=== PATIENT | female | born 1950 | race African-American/Black ===

== ENCOUNTER 2017-01-05 12:36 | Emergency (ER) | payer MEDICARE, OTHER ==
[2017-01-05 12:46] VITALS: TEMP 98; BMI 31.8
[2017-01-05] MEDS ORDERED: hydrALAZINE HCL 20 MG/ML VIAL IVPUSH ONE (14:25)
[2017-01-05] MEDS ORDERED: hydrALAZINE HCL 20 MG/ML VIAL ONE (14:34)
[2017-01-05] MEDS ORDERED: morphine CARPU-JECT 4 MG/1 ML DISP.SYRIN IVPUSH ONE (14:48)
[2017-01-05] MEDS ORDERED: ONDANSETRON 4 MG/2 ML VIAL IVPUSH ONE (14:48)
--- NOTE | 2017-01-05 14:59 | PDOC ---
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 States the pain began 3d ago, has been a sharp stabbing pain constant for 3d, rated 7/10. States her "eye doctor" in the last week stated she had no glaucoma or cataract. Her PCP is working her up for an increased creatinine kinase (pt states for RA vs myositis). She denies CAREY, vision changes (blurry vision, double vision, floaters, scotoma or dark spots in visual lucas) , photophobia or N/V. Tobacco: 1.5-2ppd x40yrs. quit 2007. No alcohol or illicit drug use. Timing/Duration: other (3d) Severity: moderate Associated Symptoms: denies: chest pain, cough, diaphoresis, fever/chills, headaches, loss of appetite, nausea/vomiting, shortness of breath, syncope, weakness <Mark Frey - Last Filed: 01/05/17 16:58> <Luz Jain - Last Filed: 01/05/17 17:26> - General Chief Complaint: Eye Problem Stated Complaint: EYE PROBLEM Time Seen by Provider: 01/05/17 13:07 Past History - Travel Traveled outside of the country in the last 30 days: No Close contact w/someone who was outside of country & ill: No - Past Medical History Diabetes: Yes (borderline) HTN: Yes (normal range around 140/80) Hypercholesterolemia: Yes Liver Disease: Yes (fatty liver, liver cysts) - Immunization History Immunization Up to Date: Yes - Psycho/Social/Smoking Cessation Hx Suicidal Ideation: No Smoking History: Former smoker Have you smoked in the past 12 months: No If you are a former smoker, when did you quit?: 2007 Information on smoking cessation initiated: No Hx Alcohol Use: No Drug/Substance Use Hx: No Substance Use Type: None Hx Substance Use Treatment: No <Mark Frey - Last Filed: 01/05/17 16:58> <JainJaninaLuz A - Last Filed: 01/05/17 17:26> - Past Medical History Allergies/Adverse Reactions: Allergies Allergy/AdvReac Type Severity Reaction Status Date / Time No Known Drug Allergies Allergy Verified 01/05/17 12:43 Home Medications: Ambulatory Orders Levofloxacin [Levaquin] 750 mg PO DAILY #14 tab 01/05/17 Nadolol 80 mg PO BID 01/05/17 Review of Systems - Review of Systems Able to Perform ROS?: Yes Is the patient limited Hungarian proficient: No Constitutional: No: Chills, Diaphoresis, Fever, Weakness HEENTM: Yes: Eye Pain (sharp stabbing in right eye, constant 3d rated 7/10). No : Blurred Vision, Tearing, Recent change in vision, Double Vision, Cataracts, Ear Pain, Ear Discharge, Nose Pain, Tinnitus, Throat Pain Respiratory: No: Cough, Shortness of Breath, Wheezing, Productive cough Cardiac (ROS): No: Chest Pain, Irregular Heart Rate, Lightheadedness, Palpitations, Syncope ABD/GI: No: Abdominal Distended, Constipated, Diarrhea : No: Burning, Dysuria, Discharge, Frequency Neurological: No: Headache, Numbness, Paresthesia Endocrine: No: Excessive Sweating, Increased Hunger, Increased Thirst, Increased Urine All Other Systems: Reviewed and Negative <Mark Frey - Last Filed: 01/05/17 16:58> *Physical Exam - Vital Signs Last Vital Signs Temp Pulse Resp BP Pulse Ox 98.0 F 65 18 197/74 99 01/05/17 12:43 01/05/17 12:43 01/05/17 12:43 01/05/17 12:43 01/05/17 12:43 - Physical Exam General Appearance: Yes: Appropriately Dressed HEENT: positive: EOMI (pain in right eye on right eye abduction), RICARDO, Normal Voice, Hearing Grossly Normal. negative: Pale Conjunctivae, Photophobia, Scleral Icterus (R), Scleral Icterus (L), Muffled/Hoarse voice Neck: negative: Tender, Lymphadenopathy (R), Lymphadenopathy (L) Respiratory/Chest: positive: Lungs Clear, Normal Breath Sounds. negative: Chest Tender, Respiratory Distress, Accessory Muscle Use, Decreased Breath Sounds, Crackles, Rales, Rhonchi, Stridor, Wheezing, Dullness Cardiovascular: positive: Regular Rhythm, Regular Rate, S1, S2. negative: JVD, Murmur, Bradycardia, Tachycardia, Systolic Murmur, Gallop/S3, Gallop/S4, Irregularly Irregular, Irregular Gastrointestinal/Abdominal: positive: Normal Bowel Sounds, Flat, Soft. negative : Tender, Organomegaly, Pulsatile Mass, Distended, Guarding, Rebound, Tenderness Musculoskeletal: positive: Normal Inspection. negative: CVA Tenderness Extremity: positive: Normal Capillary Refill, Normal Range of Motion Neurologic: positive: processing engineer II-XII NML intact, Fully Oriented, Alert, Normal Mood/ Affect, Motor Strength 5/5. negative: EOM Palsy, Facial Droop, Numbness, Sensory Deficit, Confused, Disoriented, Depressed Affect, Babinski <Mark Frey - Last Filed: 01/05/17 16:58> - Vital Signs Last Vital Signs Temp Pulse Resp BP Pulse Ox 98.0 F 66 20 140/60 97 01/05/17 12:43 01/05/17 17:20 01/05/17 17:20 01/05/17 17:20 01/05/17 17:20 <Luz Jain A - Last Filed: 01/05/17 17:26> Heart Score/ECG Review - Age Age: >/= 65 - Risk Factors Risk Factors Heart Score: Yes Hx Hypertension <Mark Frey - Last Filed: 01/05/17 16:58> ED Treatment Course - LABORATORY CBC & Chemistry Diagram: 01/05/17 14:32 01/05/17 14:32 - RADIOLOGY Radiology Studies Ordered: Category Date Time Status HEAD CT WITHOUT CONTRAST [CT] Stat CT Scan 01/05/17 14:23 Ordered CHEST X-RAY PORTABLE* [RAD] Stat Radiology 01/05/17 14:25 Ordered <Mark Frey - Last Filed: 01/05/17 16:58> - LABORATORY CBC & Chemistry Diagram: 01/05/17 14:32 01/05/17 14:32 - ADDITIONAL ORDERS Additional order review: Laboratory Results 01/05/17 01/05/17 01/05/17 14:37 14:32 14:32 INR 1.05 Sodium Potassium Chloride Carbon Dioxide Anion Gap BUN Creatinine Creat Clearance w eGFR Random Glucose Calcium Total Bilirubin AST ALT Alkaline Phosphatase Creatine Kinase 2400 H Troponin I < 0.02 Total Protein Albumin Urine Color Colorless Urine Appearance Clear Urine pH 7.0 Urine Protein Negative Urine Glucose (UA) Negative Urine Ketones Negative Urine Blood Negative Urine Nitrite Negative Urine Bilirubin Negative Urine Urobilinogen Negative Ur Leukocyte Esterase Negative 01/05/17 14:32 INR Sodium 141 Potassium 4.7 Chloride 106 Carbon Dioxide 32 Anion Gap 3 L BUN 14 Creatinine 0.8 Creat Clearance w eGFR > 60 Random Glucose 85 Calcium 9.1 Total Bilirubin 0.5 AST 55 H ALT 62 Alkaline Phosphatase 66 Creatine Kinase Troponin I Total Protein 8.0 Albumin 3.6 Urine Color Urine Appearance Urine pH Urine Protein Urine Glucose (UA) Urine Ketones Urine Blood Urine Nitrite Urine Bilirubin Urine Urobilinogen Ur Leukocyte Esterase 01/05/17 14:32 RBC 4.26 MCV 89.3 MCHC 33.7 RDW 13.7 MPV 8.8 Neutrophils % 46.1 Lymphocytes % 40.4 H Monocytes % 9.7 Eosinophils % 2.5 Basophils % 1.3 - RADIOLOGY Radiograph Interpretation: 01/05/17 17:24 Chest X-Ray Reported by Dr. Hebert Henry Impression: Cardiomegaly, no acute disease Head CT Reported by Dr. Hebert Henry Impression: Right maxillary sinusitis. No evidence of acute intracranial pathology. - Medications Given in the ED: ED Medications Discontinued Medications Generic Name Dose Route Start Last Admin Trade Name Greg PRN Reason Stop Dose Admin Acetaminophen 1,000 mg 01/05/17 15:11 01/05/17 15:21 Ofirmev Injection - IVPB 01/05/17 15:12 1,000 mg ONCE ONE Administration Hydralazine HCl 10 mg 01/05/17 14:25 01/05/17 15:03 Apresoline Injection - IVPUSH 01/05/17 14:26 10 mg ONCE ONE Administration Levofloxacin 750 mg 01/05/17 16:53 01/05/17 17:04 Levaquin - PO 01/05/17 16:54 750 mg ONCE ONE Administration Morphine Sulfate 4 mg 01/05/17 14:48 01/05/17 15:21 Morphine Injection - IVPUSH 01/05/17 14:49 Not Given ONCE ONE Ondansetron HCl 4 mg 01/05/17 14:48 01/05/17 15:22 Zofran Injection IVPUSH 01/05/17 14:49 Not Given ONCE ONE <Jain,Luz A - Last Filed: 01/05/17 17:26> Medical Decision Making - Medical Decision Making 01/05/17 15:05 this 66yo F w/ PMHx of 2 brain aneurysm in right posterior communicating artery and L paraclinoid clinoid artery unchanged since 2007, HTN, decreased bone density and tonsillectomy presents due to right eye pain HTN urgency -hydralazine IV -CBC w/ diff, CMP, EKG, troponins, pt/inr, -head ct due to high bp and hx aneurysm r/o UTI -U/A r/o temporal arteritis -consult patient to f/u pcp for temporal artery biopsy <Mark Frey - Last Filed: 01/05/17 16:58> *DC/Admit/Observation/Transfer - Discharge Dispostion Admit: No <Mark Frey - Last Filed: 01/05/17 16:58> <Luz Jain A - Last Filed: 01/05/17 17:26> Diagnosis at time of Disposition: Hypertension, uncontrolled Sinusitis Qualifiers: Sinusitis location: maxillary Chronicity: acute Recurrence: non-recurrent Qualified Code(s): J01.00 - Acute maxillary sinusitis, unspecified - Discharge Dispostion Disposition: HOME - Prescriptions Prescriptions: Levofloxacin [Levaquin] 750 mg PO DAILY #14 tab - Referrals Referrals: Eliana Grayson [Primary Care Provider] - - Patient Instructions Printed Discharge Instructions: DI for Sinusitis, High Blood Pressure Additional Instructions: Follow up with Dr. Grayson, Stick to your New Lifestyle, Healthy Foods and Exercise, NO SALT, NO BOLOGNA...... Best- Dr. Mark Frost is for 2 weeks
[2017-01-05 15:06] LABS: BASOPHIL 1.3 % (0-2.0); EOSINOPHIL 2.5 % (0-4.5); MCH 30.1 pg (25.7-33.7); MCHC 33.7 g/dl (32.0-36.0); MEAN CELL VOLUME 89.3 fl (80-96); MEAN PLT VOLUME 8.8 fl (7.5-11.1); NEUTROPHILS 46.1 % (42.8-82.8); PLATELET COUNT 225 K/MM3 (134-434); RDW 13.7 % (11.6-15.6); WHITE BLOOD COUNT 9.6 K/mm3 (4.0-10.0)
[2017-01-05] MEDS ORDERED: ACETAMINOPHEN INJECTION 100 ML IVPB ONE (15:06)
[2017-01-05] MEDS ORDERED: ACETAMINOPHEN 1000 MG/100 ML VIAL (NON FORMULARY) IVPB ONE (15:11)
[2017-01-05 15:17] LABS: INR 1.05 (0.82-1.09); PROTHROMBIN TIME (PATIENT) 11.6 SEC (9.98-11.88)
[2017-01-05 15:32] LABS: ALBUMIN 3.6 g/dl (3.4-5.0); ANION GAP 3 (8-16); BILIRUBIN,TOTAL 0.5 mg/dL (0.2-1.0); CALCIUM 9.1 mg/dL (8.5-10.1); CO2 32 mmol/L (21-32); CREATININE 0.8 mg/dL (0.55-1.02); GLUCOSE,RANDOM 85 mg/dL (74-106); SGOT/AST 55 U/L (15-37); SGPT/ALT 62 U/L (12-78)
[2017-01-05 15:33] LABS: ALK PHOS 66 U/L (45-117)
[2017-01-05 15:45] LABS: TROPONIN I < 0.02 ng/ml (0.00-0.05)
[2017-01-05 15:51] LABS: CPK 2400 IU/L (26-192)
[2017-01-05 16:18] LABS: URINE APPEARANCE CLEAR; URINE BILIRUBIN NEGATIVE (NEGATIVE); URINE BLOOD NEGATIVE (NEGATIVE); URINE COLOR COLORLESS; URINE GLUCOSE (UA) NEGATIVE (NEGATIVE); URINE KETONE NEGATIVE (NEGATIVE); URINE LEUK ESTERASE NEGATIVE (NEGATIVE); URINE NITRITE NEGATIVE (NEGATIVE); URINE PROTEIN NEGATIVE (NEGATIVE); URINE UROBILINOGEN NEGATIVE mg/dL (0.2-1.0)
[2017-01-05] MEDS ORDERED: LEVOFLOXACIN 250 MG TABLET (FP) PO ONE (16:53)
[2017-01-05] MEDS ORDERED: LEVOFLOXACIN 500 MG TABLET (FP) ONE (17:00)
[2017-01-05] MEDS ORDERED: LEVOFLOXACIN 250 MG TABLET (FP) ONE (17:01)
[2017-01-05 17:24] VITALS: BP 140/60; PULSE 66
--- NOTE | 2017-01-06 09:32 | EKG ---
Test Reason : Blood Pressure : / mmHG Vent. Rate : 069 BPM Atrial Rate : 069 BPM P-R Int : 158 ms QRS Dur : 072 ms QT Int : 428 ms P-R-T Axes : 048 013 038 degrees QTc Int : 458 ms NORMAL SINUS RHYTHM WHEN COMPARED WITH ECG OF 19-NOV-2010 10:43, NONSPECIFIC T WAVE ABNORMALITY NOW EVIDENT IN ANTERIOR LEADS QT HAS LENGTHENED Confirmed by COLLIN DEL VALLE MD ([id number]) on 01/06/2017 9:31:49 AM Referred By: Confirmed By:COLLIN DEL VALLE MD
== END 2017-01-05 17:20 | disposition home or self-care (01) ==
LOC: JER 12:36
PROC: 3E033NZ Introduction of Analgesics, Hypnotics, Sedatives into Peripheral Vein, Percutaneous Approach (ICD-10-PCS; principal; 2017-01-05)
PROC: 3E033GC Introduction of Other Therapeutic Substance into Peripheral Vein, Percutaneous Approach (ICD-10-PCS; 2017-01-05)
DX: J01.00 Acute maxillary sinusitis, unspecified (principal); I10 Essential (primary) hypertension; Z87.898 Personal history of other specified conditions; Z87.891 Personal history of nicotine dependence; K76.0 Fatty (change of) liver, not elsewhere classified; E78.00 Pure hypercholesterolemia, unspecified
CPT/HCPCS: 36415; 70450-TC; 71010-TC; 80053; 81003; 82553; 84484; 85025; 85610; 93005; 93010; 99283-25

== ENCOUNTER 2018-03-28 14:43 | Emergency (ER) | payer OTHER ==
[2018-03-28 14:49] VITALS: BMI 32.4
--- NOTE | 2018-03-28 14:52 | PDOC ---
Rapid Medical Evaluation Chief Complaint: Headache Time Seen by Provider: 03/28/18 14:47 Medical Evaluation: Allergies Allergy/AdvReac Type Severity Reaction Status Date / Time No Known Drug Allergies Allergy Verified 01/05/17 12:43 03/28/18 14:48 I have performed a brief in-person evaluation of this patient. The patient presents with a chief complaint of: "feeling funny" + Hx of 2 cerebral anneurisms= had some weakness/ "fluttering" sensations. Discussed with Dr Vickers and told to come to ER. Pertinent physical exam findings: A and O x 3, new numbness./ tingling to fingers I have ordered the following: EKG, CTScan head, CBC,CMP, Pt/INR, UA The patient will proceed to the ED for further evaluation. 03/28/18 14:52 03/28/18 14:52 Discharge Disposition - Diagnosis Numbness - Referrals - Patient Instructions - Post Discharge Activity
[2018-03-28 15:37] LABS: BASO % 1.5 % (0-2.0); EOS % 2.6 % (0-4.5); HEMATOCRIT 37.6 % (32.4-45.2); HEMOGLOBIN 12.5 GM/dL (10.7-15.3); LYMPH % 41.1 % (8-40); MCH 29.9 pg (25.7-33.7); MCHC 33.1 g/dl (32.0-36.0); MEAN CELL VOLUME 90.1 fl (80-96); MEAN PLT VOLUME 9.2 fl (7.5-11.1); MONO % 9.7 % (3.8-10.2); NEUT % 45.1 % (42.8-82.8); PLATELET COUNT 230 K/MM3 (134-434); RBC 4.17 M/mm3 (3.60-5.2); RDW 14.2 % (11.6-15.6); WHITE BLOOD COUNT 8.7 K/mm3 (4.0-10.0)
[2018-03-28 15:43] LABS: URINE APPEARANCE CLEAR; URINE BILIRUBIN NEGATIVE (<2.0 mg/dL); URINE COLOR STRAW; URINE GLUCOSE (UA) NEGATIVE (NEGATIVE); URINE KETONE NEGATIVE (NEGATIVE); URINE LEUK ESTERASE NEGATIVE (NEGATIVE); URINE NITRITE NEGATIVE (NEGATIVE); URINE PROTEIN NEGATIVE (NEGATIVE); URINE UROBILINOGEN NEGATIVE mg/dL (0.2-1.0)
[2018-03-28 16:14] LABS: ALBUMIN 3.6 g/dl (3.4-5.0); ALK PHOS 61 U/L (45-117); ANION GAP 7 MMOL/L (8-16); BILIRUBIN,TOTAL 0.3 mg/dL (0.2-1); BLOOD UREA NITROGEN 15 mg/dL (7-18); CALCIUM 9.2 mg/dL (8.5-10.1); CHLORIDE 106 mmol/L (98-107); CO2 28 mmol/L (21-32); CREATININE 0.8 mg/dL (0.55-1.3); GLUCOSE,RANDOM 83 mg/dL (74-106); SGOT/AST 62 U/L (15-37); SGPT/ALT 59 U/L (13-61); SODIUM 140 mmol/L (136-145); TOT PROT 7.7 g/dl (6.4-8.2)
--- NOTE | 2018-03-28 16:25 | PDOC ---
History of Present Illness - General Chief Complaint: CVA/TIA Stated Complaint: HEAD PAIN Time Seen by Provider: 03/28/18 14:47 - History of Present Illness Initial Comments: The patient is a 67F w/ a hx of HTN and b/l cerebral aneurysm managed by Dr. Tilley who presents for evaluation of L eye pressure and L parietal pressure for 2d. The patient reports that the sensation came on gradually, has occurred before, and is not associated with any other symptoms. The sensation generally will last less than 1 day; however, because it persisted longer than 1d the patient sought evaluation No fevers/chills, CAREY, vision changes, chest pain, SOB, abdominal pain, or changes in sensation She states that her aneurysms have been stable for the last 10 years and no longer requires regular NSGY f/u NSGY: Dr. Vickers 03/28/18 16:52 Past History - Past Medical History Allergies/Adverse Reactions: Allergies Allergy/AdvReac Type Severity Reaction Status Date / Time No Known Drug Allergies Allergy Verified 01/05/17 12:43 Home Medications: Ambulatory Orders Lisinopril [Zestril] 40 mg PO DAILY 03/28/18 Metoprolol Succinate [Toprol Xl] 50 mg PO DAILY 03/28/18 COPD: No Diabetes: Yes (borderline) HTN: Yes Hypercholesterolemia: Yes Liver Disease: Yes (fatty liver, liver cysts) Other medical history: brain aneurysms - Immunization History Immunization Up to Date: Yes - Suicide/Smoking/Psychosocial Hx Smoking History: Former smoker Have you smoked in the past 12 months: No If you are a former smoker, when did you quit?: 2007 Information on smoking cessation initiated: No Hx Alcohol Use: No Drug/Substance Use Hx: No Substance Use Type: None Hx Substance Use Treatment: No Review of Systems - Review of Systems Able to Perform ROS?: Yes Comments:: GENERAL/CONSTITUTIONAL: No fever or chills. No weakness HEAD, EYES, EARS, NOSE AND THROAT: No change in vision. No ear pain or discharge. No sore throat CARDIOVASCULAR: No chest pain or shortness of breath RESPIRATORY: No cough, wheezing, or hemoptysis GASTROINTESTINAL: No nausea, vomiting, diarrhea or constipation GENITOURINARY: No dysuria, frequency, or change in urination MUSCULOSKELETAL: No joint or muscle swelling or pain. No neck or back pain SKIN: No rash NEUROLOGIC: No headache, vertigo, loss of consciousness, or change in strength/ sensation ENDOCRINE: No increased thirst. No abnormal weight change HEMATOLOGIC/LYMPHATIC: No anemia, easy bleeding, or history of blood clots ALLERGIC/IMMUNOLOGIC: No hives or skin allergy 03/28/18 16:47 Is the patient limited Kosovan proficient: No *Physical Exam - Vital Signs Last Vital Signs Temp Pulse Resp BP Pulse Ox 98 F 65 18 135/57 L 96 03/28/18 14:47 03/28/18 14:47 03/28/18 14:47 03/28/18 14:47 03/28/18 14:47 - Physical Exam Comments: GENERAL: Awake, alert, and fully oriented, in no acute distress HEAD: No signs of trauma, normocephalic, atraumatic EYES: PERRLA, EOMI, sclera anicteric, conjunctiva clear ENT: Hearing grossly normal, nares patent, oropharynx clear without exudates. Moist mucosa NECK: Normal ROM, supple, no lymphadenopathy LUNGS: No distress, speaks full sentences, clear to auscultation bilaterally HEART: Regular rate and rhythm, normal S1 and S2, no murmurs, rubs or gallops, peripheral pulses normal and equal bilaterally ABDOMEN: Soft, nontender, normoactive bowel sounds. No guarding, no rebound. No masses EXTREMITIES : Normal inspection, Normal range of motion, no edema. No clubbing or cyanosis NEUROLOGICAL: Cranial nerves II through XII grossly intact. Normal speech, normal gait, no focal sensorimotor deficits SKIN: Warm, Dry, normal turgor, no rashes or lesions noted 03/28/18 22:04 ED Treatment Course - LABORATORY CBC & Chemistry Diagram: 03/28/18 14:52 03/28/18 14:52 - ADDITIONAL ORDERS Additional order review: Laboratory Results 03/28/18 03/28/18 14:56 14:52 Sodium 140 Potassium 4.0 Chloride 106 Carbon Dioxide 28 Anion Gap 7 L BUN 15 Creatinine 0.8 Creat Clearance w eGFR > 60 Random Glucose 83 Calcium 9.2 Total Bilirubin 0.3 AST 62 H ALT 59 Alkaline Phosphatase 61 Total Protein 7.7 Albumin 3.6 Urine Color Straw Urine Appearance Clear Urine pH 6.0 Ur Specific [place] 1.005 L Urine Protein Negative Urine Glucose (UA) Negative Urine Ketones Negative Urine Blood Negative Urine Nitrite Negative Urine Bilirubin Negative Urine Urobilinogen Negative Ur Leukocyte Esterase Negative 03/28/18 14:52 RBC 4.17 MCV 90.1 MCHC 33.1 RDW 14.2 MPV 9.2 Neutrophils % 45.1 Lymphocytes % 41.1 H Monocytes % 9.7 Eosinophils % 2.6 Basophils % 1.5 Medical Decision Making - Medical Decision Making The patient is a 67F w/ a history of b/l cerebral aneurysm w/o hx of intervention CT head w/o evidence of acute bleed No leukocytosis No anemia Lytes wnl UA w/o evidence of UTI Patient neuro intact b/l throughout Strength intact Tylenol and Reglan for pain Will contact Dr. Tilley, her NSGY for consultation on mgmt 03/28/18 16:48 NSGY consulted (Dr. Vickers), will plan for CTA head for evaluation of aneurysms USIV placed 03/28/18 19:23 CTA head result pending 03/28/18 19:52 CTA w/o evidence of interval change, both aneurysms patent Will discuss results w/ Dr. Vickers 03/28/18 20:41 Results discussed w/ Dr. Vickers Plan for D/C w/ NSGY f/u Discharge instructions and return precautions given Plan discussed w/ patient who is in agreement and verbalized understanding Dispo: home 03/28/18 22:00 *DC/Admit/Observation/Transfer Diagnosis at time of Disposition: Cephalgia Qualifiers: Headache type: unspecified Headache chronicity pattern: unspecified pattern Intractability: not intractable Qualified Code(s): R51 - Headache - Discharge Dispostion Disposition: HOME Condition at time of disposition: Improved Decision to Admit order: No - Referrals Referrals: Eliana Grayson [Primary Care Provider] - Kayode Vickers MD [Staff Physician] - - Patient Instructions Printed Discharge Instructions: DI for Headache - Post Discharge Activity
--- NOTE | 2018-03-28 16:26 | PDOC ---
Attending Attestation - Physicial Exam PE: 03/28/18 17:45 Constitutional: Awake, alert, oriented. No acute distress. Head: Normocephalic. Atraumatic Eyes: PERRL. EOMI. Conjunctivae are not pale. ENT: Mucous membranes are moist and intact. Posterior pharynx without exudates or erythema. Uvula midline. Neck: Supple. Full ROM. No lymphadenopathy. Cardiovascular: Regular rate. Regular rhythm. S1, S2 regular. Distal pulses are 2+ and symmetric. Pulmonary/Chest: No evidence of respiratory distress. Clear to auscultation bilaterally No wheezing, rales or rhonchi. Abdominal: Soft and non-distended. There is no tenderness. No rebound, guarding or rigidity. No organomegaly. No palpable masses. Good bowel sounds. Back: No CVA tenderness. Musculoskeletal: No edema. No cyanosis. No clubbing. Full range of motion in all extremities. No calf tenderness. Radial/pedal pulses are intact and 2+ bilaterally Skin: Skin is warm and dry. No petechiae. No purpura. Neurological: Alert and oriented to person, place, and time. Cranial nerves II -XII are grossly intact. Normal speech. Strength is grossly symmetric. No sensory deficits. Ambulates with a steady gait. Psychiatric: Good eye contact. Normal interaction, affect and behavior. <Parminder Jara - Last Filed: 03/28/18 17:45> - Resident Resident Name: FaustoJose faulkner - ED Attending Attestation I have performed the following: I have examined & evaluated the patient, The case was reviewed & discussed with the resident, I agree w/resident's findings & plan, Exceptions are as noted - HPI HPI: 03/28/18 17:40 67yo female with hx of b/l brain aneurysms with paresthesias and fullness to L side of her head and behind her eye. States symptoms started yesterday. Has had prior episodes that are similar, but have never lasted this long. No weakness. No change in speech or vision. No other paresthesias. No recent infections, no f /c. No rhinorrhea or sore throat. No cp/sob. no abd pain. no n/v/d. No other complaints. - Medical Decision Making 03/28/18 16:26 IDr. Oralia, DO, attest that this document has been prepared under my direction and personally reviewed by me in its entirety. I further attest, that it accurately reflects all work, treatment, procedures and medical decision -making performed by me. 03/28/18 17:42 a/p: 67yo female with L facial paresthesias and head pressure -RME ordered labs and head ct -no acute findings on head ct -neuro intact -call placed to Dr. Vickers to discuss further imaging vs follow up outpt with him for the brain aneurysms -labs reviewed and discussed with the patient. 03/28/18 18:[address] Vickers who requests CTA head and a call back <Oralia Napier - Last Filed: 03/28/18 19:49> Heart Score/ECG Review - ECG Intrepretation Comment:: 03/28/18 19:49 sinus at 62, nl axis, nl interval, no acute st/t wave findings <Oralia Napier - Last Filed: 03/28/18 19:49> Attestations - Attestations 03/28/18 17:45 Documentation prepared by Parminder Jara, acting as regional medical director for Oralia Napier DO. <Parminder Jara - Last Filed: 03/28/18 17:45>
[2018-03-28] MEDS ORDERED: ACETAMINOPHEN 325 MG TABLET (FP) PO ONE (16:47)
[2018-03-28] MEDS ORDERED: METOCLOPRAMIDE HCL INJECTION 10 MG/2 ML VIAL IVPUSH ONE (16:48)
[2018-03-28] MEDS ORDERED: ACETAMINOPHEN 325 MG TABLET (FP) ONE (16:54)
[2018-03-28] MEDS ORDERED: METOCLOPRAMIDE HCL INJECTION 10 MG/2 ML VIAL ONE (16:55)
[2018-03-28 17:13] LABS: INR 1.03 (0.83-1.09); PROTHROMBIN TIME (PATIENT) 12.1 SEC (9.7-13.0)
[2018-03-28] MEDS ORDERED: SODIUM CHLORIDE 0.9% 500 ML INFUS.BAG IV ONE (17:46)
[2018-03-28 20:43] VITALS: BP 138/64; PULSE 61; TEMP 98.5
--- NOTE | 2018-03-29 15:08 | EKG ---
Test Reason : Blood Pressure : / mmHG Vent. Rate : 062 BPM Atrial Rate : 062 BPM P-R Int : 198 ms QRS Dur : 072 ms QT Int : 416 ms P-R-T Axes : 059 017 048 degrees QTc Int : 422 ms NORMAL SINUS RHYTHM NORMAL ECG WHEN COMPARED WITH ECG OF 05-JAN-2017 15:36, NONSPECIFIC T WAVE ABNORMALITY NO LONGER EVIDENT IN ANTERIOR LEADS Confirmed by DEVIN BEY MD ([id number]) on 03/29/2018 3:08:17 PM Referred By: Confirmed By:DEVIN BEY MD
== END 2018-03-28 21:23 | disposition home or self-care (01) ==
LOC: JER 14:43
DX: R51 Headache (principal); I10 Essential (primary) hypertension; I67.1 Cerebral aneurysm, nonruptured; R73.03 Prediabetes; E78.00 Pure hypercholesterolemia, unspecified; Z87.891 Personal history of nicotine dependence
CPT/HCPCS: 36415; 70450-TC; 70496-TC; 80053; 81003; 85025; 85610; 93005; 93010; 99284-25

== ENCOUNTER 2019-12-22 11:57 | Emergency (ER) | payer OTHER ==
[2019-12-22 12:19] VITALS: BP 115/49; PULSE 72; TEMP 99.3; BMI 33.6
--- NOTE | 2019-12-22 13:34 | PDOC ---
Rapid Medical Evaluation Chief Complaint: Shortness of Breath Time Seen by Provider: 12/22/19 12:10 Medical Evaluation: Allergies Allergy/AdvReac Type Severity Reaction Status Date / Time No Known Drug Allergies Allergy Verified 12/22/19 12:18 Vital Signs Temp Pulse Resp BP Pulse Ox 99.3 F 72 18 115/49 L 97 12/22/19 12:16 12/22/19 12:16 12/22/19 12:16 12/22/19 12:16 12/22/19 12:16 12/22/19 15:28 HPI: The patient is a 68 y/o F with PMH of HTN, no known exposure to COVID-19 with associated symptoms of fever, body aches and diarrhea for 3 days. She states she took tylenol this morning. Denies cough, shortness of breath or difficulty breathing. Her grandson is also a patient and reports similar symptoms. ROS: Present: fever, body aches, diarrhea NEGATIVE: difficulty breathing, shortness of breath, chest pain, lightheadedness, dizziness, nausea, vomiting. Other 12 point ROS reviewed and negative. Exam: General: NAD, Well-Appearing, Awake, Alert Oriented x3. Vital signs stable. ENT: No rhinorrhea or nasal congestion. Neck: FROM, no midline tenderness. Lungs: Clear to auscultation bilaterally without wheezes, rhonchi or rales. Normal excursion. Patient is able to speak in full sentences. Heart: HR: Regular rhythm, S1-S2 present, no murmurs rubs or gallops. Abdomen: Non-distended. MSK/Extremities: No decrease ROM, No obvious deformities. No obvious cyanosis noted. Neuro: Normal Gait, Cranial Nerves II through XII Grossly Intact. Skin: No obvious rashes, bruising. Color Normal Appearing. Assessment/Plan: Fever Patient has a history of this/these comorbidities: HTN, denies recent travel and known COVID exposure. Given pt with similar URI symptoms to grandson who she lives with, will send COVID test. O2 sat stable CXR with no acute pathology by my read DC home with supportive therapy, return precautions, and isolation instructions Discharge Disposition - Diagnosis Suspected COVID-19 virus infection Fever Qualifiers: Fever type: unspecified Qualified Code(s): R50.9 - Fever, unspecified - Discharge Dispostion Disposition: HOME Condition at time of disposition: Stable Last Admission D/C Date: 04/17/08 - Referrals Referrals: Eliana Grayson [Primary Care Provider] - - Patient Instructions Printed Discharge Instructions: [facility] Instructions, [facility] COVID-19 Isolation Protocol Additional Instructions: You were seen for your fever and possible Coronavirus (COVID-19) You were tested today for COVID. You will be notified of your results Your chest x-ray was normal. Take Tylenol 650 mg every 6 hours as needed for fever or pain. You may take Robitussin or other [id number] cough syrup. Follow the dosing instructions on the bottle. Warm tea, honey, and salt water gargles may help your symptoms. Please take precautions and self quarantine for 2 weeks and follow-up with your primary care doctor and the Department of Health. Return to the nearest emergency department for shortness of breath, difficulty breathing, chest pain, or if you have any changes in your symptoms. - Post Discharge Activity
== END 2019-12-22 13:35 | disposition home or self-care (01) ==
LOC: JER 11:57
DX: U07.1 COVID-19 (principal); R50.9 Fever, unspecified
CPT/HCPCS: 71046-TC-FY; 99284-25; U0003